=== PATIENT | male | born 1995 | race Caucasian/White ===

== ENCOUNTER → 2017-10-20 | Outpatient (CLI) | payer OTHER ==
--- NOTE | 2017-10-20 10:18 | DIAGNOSTIC IMAGING REPORT ---
L ANKLE MIN 3 VIEWS ROUTINE CLINICAL HISTORY: Left ankle pain following fall. COMPARISON: None FINDINGS: Alignment of left ankle is anatomic. There is no acute fracture. Talar dome is intact. There is mild lateral ankle soft tissue swelling. IMPRESSION: 1. No acute fracture or dislocation of the left ankle. 2. Mild lateral ankle soft tissue swelling. Electronically signed by: Marcello Lester M.D. 10/20/2017 10:17 AM Dictated Date/Time: 10/20/2017 10:16 AM
--- NOTE | 2017-10-20 10:19 | DIAGNOSTIC IMAGING REPORT ---
L WRIST MIN 3 VIEWS ROUTINE CLINICAL HISTORY: Left wrist pain status post fall. COMPARISON: None FINDINGS: Alignment of the left wrist is anatomic. No fracture. There is no fracture within the distal left radius or ulna. IMPRESSION: No acute fracture or dislocation within the left wrist. Electronically signed by: Mracello Lester M.D. 10/20/2017 10:18 AM Dictated Date/Time: 10/20/2017 10:17 AM
== END | disposition home or self-care (01) ==
LOC: C.RAD1850 10:05
PROVIDERS: ATTEND Family Medicine
DX: M25.572 Pain in left ankle and joints of left foot (principal); M25.532 Pain in left wrist